=== PATIENT | female | born 1970 | race Caucasian/White ===

== ENCOUNTER 2023-08-04 13:35 | Emergency (ER) | payer OTHER, SELFPAY ==
[2023-08-04] VITALS (7 sets, daily range): BP systolic 111–136; BP diastolic 63–86
--- NOTE | 2023-08-04 14:32 | ED.GENMED ---
History of Present Illness
General
Chief Complaint: Fatigue
Source: patient
Time Seen by Provider: 08/04/23 14:22
Travel History
Have you had any contact with someone who has COVID-19?: No
Do you have any symptoms of coronavirus? Fever > 100 degrees, chills, cough, shortness of breath, sore throat, loss of taste or smell, muscle aches, or headache?: No
History of Present Illness
History of Present Illness:
53-year-old female presents with generalized fatigue. She was discharged from [facility] about 10 days ago. 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 She was treated with antibiotics was discharged on a couple more days of
antibiotics but lost them and route back here. She has been living in her car. She has occasional chest discomfort. She notes sweats and chills. No measurable fever. No other complaints at this time
Past History
Past History
ED Past Medical History: Asthma, HTN, Psychiatric (Depression, Panic attacks) and Other (back pain, frequent headaches, .Lymes disease, Chronic joint pain)
ED Past Surgical History: (tubal ligation) and Other (Hernia)
Social History
Tobacco: Smoker
Alcohol: None
Drug: Marijuana and Narcotics (Percocet abuse)
Personal: Single
Living: with family
Employment: Employed
Family History
Family History: Unable to obtain
Phy Exam
Physical Exam
Physical Exam:
General: Well-appearing female no acute respiratory distress
HEENT: Normocephalic atraumatic
Heart: Regular rate and rhythm no audible murmurs
Lungs: Clear no wheeze or rales
Abdomen: Soft nontender numbness
Extremities: No cyanosis
Skin: Warm no rash
Course
Orders/Labs/Results
Orders:
Orders
08/04/23 13:55
Case Management Consult ONCE
Case Management Consult: Discharge Planning
Requested By:: PT/FAMILY
Comment: PT. currently living in her car. She requested to meet with you.
08/04/23 14:18
Electrocardiogram (*1) Urgent
Reason for Study: Chest Pain
08/04/23 14:19
EKG- Treatment ONCE
08/04/23 15:19
CMP [Comprehensive Metabolic Panel] Urgent
Complete Blood Count/With Diff Urgent
Troponin I Urgent
Abnormal Lab Results
08/04/23
15:19
Hgb 11.4 L g/dL
(12.0-16.0)
Hct 35.9 L %
(37.0-47.0)
MCV 76.5 L fL
(81.0-99.0)
MCH 24.3 L pg
(27.0-31.0)
MCHC 31.8 L g/dL
(33.0-37.0)
RDW 16.6 H %
(11.5-14.5)
Total Protein 6.0 L g/dl
(6.3-8.2)
Albumin 3.4 L g/dl
(3.5-5.0)
08/04/23 15:19
08/04/23 15:19
Vital Signs
Initial and Last Documented VS:
Initial Vital Signs
Temp Pulse Resp BP Pulse Ox
98.2 F 94 18 136/86 100
08/04/23 13:40 08/04/23 13:40 08/04/23 13:40 08/04/23 13:40 08/04/23 13:40
Last Documented Vital Signs
Temp Pulse Resp BP Pulse Ox
98.2 F 77 27 111/72 100
08/04/23 13:40 08/04/23 18:15 08/04/23 18:15 08/04/23 18:00 08/04/23 18:15
MDM/Problems Addressed
Differential Diagnosis Includes:
Generalized fatigue. Recent diagnosis of endocarditis. Patient was at a hospital in [place] for this. Will check labs. EKG pending. Troponin pending. Vital signs are stable. Patient is with family member. Patient admits to living out of
her car. She did request manager social work. Case management consult placed
*Critical Care Note
Total Time (30-74mins, 75-104mins- exclusive of procedures): Not Applicable
Update Note
Update Note:
Patient reevaluated still stable. White count normal troponin undetectable. Discussed with case management. Case management attempting to find her hotel to stay in. Patient did lose her remaining 4 days of Bactrim after prior discharge. I will
refill this prescription for her to take. No neck condition at this time.
ED Attending Note
-
Portions of this chart may have been created with voice recognition software.� Occasional wrong word or��sound alike� substitutions may have occurred due to the inherent limitations of voice recognition software.
Discharge Plan
Departure
Patient Disposition: Home (Routine Discharge)
Date of Disposition: 08/04/23
Time of Disposition: 18:01
Patient with high blood pressure during this ER visit?: No
Discharge Problem:
Fatigue
Instructions: Fatigue (DC)
Prescriptions:
New
sulfamethoxazole-trimethoprim [Bactrim DS] 800-160 mg tablet
1 tab PO BID Qty: 14 0RF
Referrals:
NONE,* [Family Provider] -
Activity Restrictions/Additional Instructions:
Please return here for worsening symptoms otherwise follow-up with family doctor.
Interventions
Interventions:
*Risk Screen - Suicide Last Done: 08/04/23 13:40
*General Assessment Last Done: 08/04/23 13:40
*Neglect/Abuse Screening Last Done: 08/04/23 13:40
ED- Fall Risk Assessment Last Done: 08/04/23 13:53
*ED COVID-19 Vaccine History Last Done: 08/04/23 13:40
*Nursing Disposition Last Done: 08/04/23 18:35
Discharge Date and Time
Discharge Date/Time: 08/04/23 18:36
Print Language: CITIZEN OF [place]
[2023-08-04 15:38] LABS: % Basophils 0.7 % (0-2); % Eosinophils 2.8 % (0-6); % Immature Granulocytes 0.3 % (0-0.5); % Lymphocytes 24.8 % (20.5-51.1); % Monocytes 6.5 % (1.7-9.3); % Neutrophils 64.9 % (42.2-75.2); Absolute Eosinophils 0.2 10^3/uL (0-0.7); Absolute Lymphocytes 1.5 10^3/uL (1.2-3.4); Absolute Monocytes 0.4 10^3/uL (0.1-0.6); Absolute Neutrophils 3.9 10^3/uL (1.4-6.5); Hematocrit 35.9 % (37.0-47.0); Hemoglobin 11.4 g/dL (12.0-16.0); Mean Corp Hgb Conc. 31.8 g/dL (33.0-37.0); Mean Corpuscular Hgb 24.3 pg (27.0-31.0); Mean Corpuscular Volume 76.5 fL (81.0-99.0); Mean Platelet Volume 10.3 fL (7.4-10.4); Nucleated Red Blood Cells % 0 %; Platelet Count 329 10^3/uL (130-400); Red Blood Cell Count 4.69 10^6/uL (4.20-5.40); Red Cell Dist. Width 16.6 % (11.5-14.5)
--- NOTE | 2023-08-04 15:45 | CM ---
Addendum entered by Coreen Swan RN 08/04/23 16:29:
EDUARDO left message for MARIE to request housing assistance. CM will await call back.
Original Note:
CM met with patient in room. Patient stated that she have been homeless for several months. She drove up to [facility] as her family is here. She stated that they cannot provide housing assistance at this time. Patient has her 15 year old with her
who she stated is going to stay with his friend's family while he is in [facility].
CM provided patient with written homeless resources. She is requesting assistance with a hotel room. EDUARDO will call MARIE for a hotel room if the patient is being discharged.
[2023-08-04 16:00] LABS: Troponin I < 0.012 ng/ml
[2023-08-04 16:02] LABS: ALT (SGPT) 13 U/L (0-35); AST (SGOT) 16 U/L (14-36); Albumin 3.4 g/dl (3.5-5.0); Alkaline Phosphatase 69 U/L (38-126); Blood Urea Nitrogen 11 mg/dl (7-17); Calcium 9.3 mg/dl (8.4-10.2); Carbon Dioxide 27 mmol/L (22-30); Chloride 106 mmol/L (98-107); Glucose 85 mg/dl (70-99); Potassium 4.1 mmol/L (3.5-5.1); Sodium 137 mmol/L (135-145); Total Bilirubin 0.3 mg/dl (0.2-1.3); eGFR > 60.00
--- NOTE | 2023-08-04 18:36 | CM ---
[facility] was unable to assist with hotel room. Patient has spoken with MARIE and they offered multiple resources. Patient has not been able to follow up with resources. Patient stated that she has a friend that she can stay with. CM offered a ride
assistance
Tonio Sepulveda
VITALIY Martin
== END 2023-08-04 18:36 | disposition home or self-care (01) ==
LOC: EMR 13:35
PROVIDERS: Physician Assistant Medical; EMERGENCY PHYSICIAN Emergency Medicine
DX: R53.83 Other fatigue (principal); J45.909 Unspecified asthma, uncomplicated; I10 Essential (primary) hypertension; F32.A Depression, unspecified; F41.0 Panic disorder [episodic paroxysmal anxiety]; F17.200 Nicotine dependence, unspecified, uncomplicated
CPT/HCPCS: 99283; 80053; 84484; 85025; 93005

== ENCOUNTER 2023-08-09 23:40 | Emergency (ER) | payer OTHER, SELFPAY ==
[2023-08-09 23:41] VITALS: BMI 37.7
[2023-08-09 23:45] VITALS: BP 157/93
[2023-08-10] VITALS: BP 140/92
[2023-08-10] MEDS: NSS 1000 IV
[2023-08-10] MEDS: TORADOL 15 MG IV (00:03)
[2023-08-10] MEDS: ZOFRAN 4 MG IV (00:03)
[2023-08-10 00:06] LABS: % Basophils 0.8 % (0-2); % Immature Granulocytes 0.3 % (0-0.5); % Lymphocytes 27.2 % (20.5-51.1); % Neutrophils 64.7 % (42.2-75.2); Absolute Basophils 0.1 10^3/uL (0-0.2); Absolute Eosinophils 0.1 10^3/uL (0-0.7); Absolute Lymphocytes 1.7 10^3/uL (1.2-3.4); Absolute Monocytes 0.4 10^3/uL (0.1-0.6); Hematocrit 37.1 % (37.0-47.0); Hemoglobin 11.9 g/dL (12.0-16.0); Mean Corp Hgb Conc. 32.1 g/dL (33.0-37.0); Mean Corpuscular Hgb 24.5 pg (27.0-31.0); Mean Corpuscular Volume 76.3 fL (81.0-99.0); Mean Platelet Volume 9.7 fL (7.4-10.4); Nucleated Red Blood Cells % 0 %; Platelet Count 276 10^3/uL (130-400); Red Blood Cell Count 4.86 10^6/uL (4.20-5.40); Red Cell Dist. Width 16.3 % (11.5-14.5); White Blood Cell Count 6.2 10^3/uL (4.8-10.8)
--- NOTE | 2023-08-10 00:11 | ED.GENMED ---
History of Present Illness
General
Chief Complaint: Abdominal Symptoms
Time Seen by Provider: 08/09/23 23:51
Travel History
Have you had any contact with someone who has COVID-19?: No
Do you have any symptoms of coronavirus? Fever > 100 degrees, chills, cough, shortness of breath, sore throat, loss of taste or smell, muscle aches, or headache?: No
History of Present Illness
History of Present Illness:
53-year-old female with history of hypertension and endocarditis presents to the emergency department complaining of nausea, diarrhea, abdominal pain. He was in this emergency department 5 days ago with complaints of fatigue. She was apparently
admitted to a hospital in [facility] for a prolonged period of time due to endocarditis due to IV drug abuse. She was discharged approximately 2 weeks ago misplaced her last 3 to 4 days of antibiotics. I do not have any immediate records
available at this time regarding that hospitalization. She admits that she is currently homeless. Denies any recent opiate use whether oral or IV. States she has been 'clean for several months'. Denies any chest pain or shortness of breath
currently. No ill contacts.
Past History
Past History
ED Past Medical History: Asthma, HTN, Psychiatric (Depression, Panic attacks) and Other (back pain, frequent headaches, .Lymes disease, Chronic joint pain)
ED Past Surgical History: (tubal ligation) and Other (Hernia)
Social History
Tobacco: Smoker
Alcohol: None
Drug: Marijuana and Narcotics (Percocet abuse)
Personal: Single
Living: with family
Employment: Employed
Family History
Family History: Unable to obtain
Review of Systems
Review of Systems
Allergies reviewed?: Yes
All Other Systems: ROS reviewed and negative except as documented in HPI and ROS
Phy Exam
Physical Exam
Physical Exam:
GEN: Well appearing, NAD, WDWN
Eyes: PERRLA, EOMs intact, no scleral icterus
HENT: NCAT, oral mucosa moist
Lungs: CTAB, no wheezes, rales, rhonchi, normal chest wall excursion
Cardiac: RRR, mild systolic murmur, no peripheral edema. Radial pulses 2+ bilat
Abdomen: Soft, mild generalized tenderness, no focal tenderness, no rigidity
Neuro: AO x 3, no focal deficits to BUE/BLE, normal sensation throughout
MSK: No gross deformity or ecchymosis.
Skin: No rashes, petechiae. Normal color, no pallor or jaundice.
Psych: Disheveled, poor hygiene
Course
Orders/Labs/Results
Orders:
Orders
08/09/23 23:55
0.9% Sodium Chloride 1000 ml [Nss] 1,000 ml IV BOLUS
Ketorolac [Toradol] 15 mg IV NOW STA
Ondansetron Injectable [Zofran] 4 mg IV NOW STA
08/09/23 23:57
Complete Blood Count/With Diff Urgent
Comprehensive Metabolic Panel Urgent
Lipase Urgent
Abnormal Lab Results
08/09/23
23:57
Hgb 11.9 L g/dL
(12.0-16.0)
MCV 76.3 L fL
(81.0-99.0)
MCH 24.5 L pg
(27.0-31.0)
MCHC 32.1 L g/dL
(33.0-37.0)
RDW 16.3 H %
(11.5-14.5)
Chloride 108 H mmol/L
(98-107)
08/09/23 23:57
08/09/23 23:57
Vital Signs
Initial and Last Documented VS:
Initial Vital Signs
Temp Pulse Resp BP Pulse Ox
97.7 F 75 16 157/93 98
08/09/23 23:45 08/09/23 23:45 08/09/23 23:45 08/09/23 23:45 08/09/23 23:45
Last Documented Vital Signs
Temp Pulse Resp BP Pulse Ox
97.7 F 75 16 139/85 96
08/09/23 23:45 08/09/23 23:45 08/09/23 23:45 08/10/23 01:00 08/10/23 01:15
MDM/Problems Addressed
MDM/Problems Addressed:
Patient's labs are reassuring, she has a non concerning abdominal exam, do not feel there is any indication for CT imaging. Treated with supportive care in the emergency department with improvement. She is homeless and requested oncology social worker
however at this time there is no case management available to the hospital. She was offered a shower and food which she gladly accepted. Discharged from the emergency department in stable condition
*Critical Care Note
Total Time (30-74mins, 75-104mins- exclusive of procedures): Not Applicable
ED Attending Note
-
Portions of this chart may have been created with voice recognition software.� Occasional wrong word or��sound alike� substitutions may have occurred due to the inherent limitations of voice recognition software.
Discharge Plan
Departure
Patient Disposition: Home (Routine Discharge)
Date of Disposition: 08/10/23
Time of Disposition: 01:35
Patient with high blood pressure during this ER visit?: No
Discharge Problem:
Homelessness, Abdominal pain, Diarrhea
Instructions: Abdominal Pain
Prescriptions:
No Action
sulfamethoxazole-trimethoprim [Bactrim DS] 800-160 mg tablet
1 tab PO BID Qty: 14 0RF
Referrals:
NONE,* [Family Provider] -
Interventions
Interventions:
*Risk Screen - Suicide Last Done: 08/09/23 23:41
*General Assessment Last Done: 08/09/23 23:41
*Neglect/Abuse Screening Last Done: 08/09/23 23:41
ED- Fall Risk Assessment Last Done: 04/30/24 23:41
*ED COVID-19 Vaccine History Last Done: 08/09/23 23:41
XS-Qvuytc-Yvjsgtstyl Assessment Last Done: 08/09/23 23:41
Discharge Date and Time
Print Language: MAC[place]
[2023-08-10 00:20] LABS: ALT (SGPT) 13 U/L (0-35); AST (SGOT) 17 U/L (14-36); Albumin 3.5 g/dl (3.5-5.0); Alkaline Phosphatase 68 U/L (38-126); Blood Urea Nitrogen 7 mg/dl (7-17); Calcium 9.3 mg/dl (8.4-10.2); Carbon Dioxide 23 mmol/L (22-30); Chloride 108 mmol/L (98-107); Estimated Creatinine Clearance > 125 ml/min; Glucose 93 mg/dl (70-99); Lipase 41 U/L (23-300); Potassium 3.7 mmol/L (3.5-5.1); Sodium 137 mmol/L (135-145); Total Bilirubin 0.5 mg/dl (0.2-1.3); Total Protein 6.3 g/dl (6.3-8.2); eGFR > 60.00
[2023-08-10 01:00] VITALS: BP 139/85
[2023-08-10 05:23] VITALS: BP 130/80
--- NOTE | 2023-08-10 05:25 | EDRN ---
Pt. discharged, was provided meal and shower for self and her son. Pt. requesting to speak to heat treating bluer as 'it's still too dark for me to be up and walking and I can't walk back to where we came from right now'. Pt. was provided multiple alf
resources from crisis, heat treating bluer to bedside, offered for pt. to wait in waiting room until light outside and pt. feels safe. Pt. provided additional clothing per her request.
--- NOTE | 2023-08-10 10:48 | CM ---
Received CM consult for patient and her son who were waiting in ED waiting room. Reviewed the chart notes. Patient was seen in 08/04/23 in the ED and CM contacted MARIE who provided the patient with resources for homelessness. CM printed and
provided to the patient the [facility] Link information, as well as, the [facility] information packet. Patient requested a ride to [facility]. Ismael ride provided.
== END 2023-08-10 05:38 | disposition home or self-care (01) ==
LOC: EMR 23:40
PROVIDERS: Physician Assistant; EMERGENCY PHYSICIAN Student in an Organized Health Care Education/Training Program
DX: R11.0 Nausea (principal); R19.7 Diarrhea, unspecified; R10.9 Unspecified abdominal pain; I10 Essential (primary) hypertension; I38 Endocarditis, valve unspecified
CPT/HCPCS: 99283; 96374; 96375; 96360; 80053; 83690; 85025

== ENCOUNTER 2023-08-29 12:43 | Emergency (ER) | payer OTHER, SELFPAY ==
[2023-08-29 12:47] VITALS: BP 119/98; BMI 35.6
[2023-08-29 13:00] VITALS: BP 110/86
[2023-08-29 13:17] LABS: % Basophils 0.5 % (0-2); % Eosinophils 1.4 % (0-6); % Immature Granulocytes 0.4 % (0-0.5); % Lymphocytes 29.7 % (20.5-51.1); % Monocytes 5.7 % (1.7-9.3); % Neutrophils 62.3 % (42.2-75.2); Absolute Eosinophils 0.1 10^3/uL (0-0.7); Absolute Lymphocytes 1.7 10^3/uL (1.2-3.4); Absolute Monocytes 0.3 10^3/uL (0.1-0.6); Absolute Neutrophils 3.5 10^3/uL (1.4-6.5); Hematocrit 40.9 % (37.0-47.0); Mean Corp Hgb Conc. 31.8 g/dL (33.0-37.0); Mean Corpuscular Hgb 24.5 pg (27.0-31.0); Mean Corpuscular Volume 77.2 fL (81.0-99.0); Mean Platelet Volume 10.7 fL (7.4-10.4); Nucleated Red Blood Cells % 0 %; Platelet Count 330 10^3/uL (130-400); White Blood Cell Count 5.6 10^3/uL (4.8-10.8)
[2023-08-29 13:29] LABS: Blood Urea Nitrogen 7 mg/dl (7-17); Calcium 9.7 mg/dl (8.4-10.2); Carbon Dioxide 23 mmol/L (22-30); Estimated Creatinine Clearance > 125 ml/min; Glucose 108 mg/dl (70-99); eGFR > 60.00
--- NOTE | 2023-08-29 13:31 | ED.GENMED ---
History of Present Illness
General
Chief Complaint: Chest Pain
Source: patient and ambulance crew
Exam Limitations: none
Time Seen by Provider: 08/29/23 13:29
Nursing documentation reviewed up to this point in time: agreed with
Travel History
Have you had any contact with someone who has COVID-19?: No
Do you have any symptoms of coronavirus? Fever > 100 degrees, chills, cough, shortness of breath, sore throat, loss of taste or smell, muscle aches, or headache?: No
History of Present Illness
History of Present Illness:
53-year-old female presents emergency department complaining of chest pain in the center of her chest since 6 AM. She has gotten this in the past. She also is suicidal, she states she does not want to live homeless any longer. She has been
homeless in the past, and has been camping in the [facility] for the past 2 months.
Past History
Past History
ED Past Medical History: Asthma, HTN, Psychiatric (Depression, Panic attacks) and Other (back pain, frequent headaches, .Lymes disease, Chronic joint pain, endocarditis)
ED Past Surgical History: (tubal ligation) and Other (Hernia)
Social History
Tobacco: Smoker
Alcohol: None
Drug: Marijuana and Narcotics (Percocet abuse)
Personal: Single
Living: with family
Employment: Employed
Family History
Family History: Unable to obtain
Review of Systems
Review of Systems
Allergies reviewed?: Yes
All Other Systems: Not applicable
Constitutional: Reports no symptoms
EENT: Reports no symptoms
Respiratory: Reports no symptoms
Cardiac: Reports chest pain
ABD/GI: Reports no symptoms
: Reports no symptoms
Musculoskeletal: Reports no symptoms
Skin: Reports no symptoms
Neurological: Reports no symptoms
Endocrine: Reports no symptoms
Hematologic/Lymphatic: Reports no symptoms
Psychiatric: Reports suicidal
Phy Exam
Physical Exam
Physical Exam:
Physical Exam
General: no apparent distress, not acutely ill
Neck: supple. no meningeal signs. normal posterior pharynx
Heart: s1/s2 regular rate and rhythm, no murmur. equal radial
pulses. Chest wall tender to palpation, reproducing pain
HEENT: Pupils equal round reactive to light, EOMI
Lungs: no acute respiratory distress. clear bilaterally
Abdomen: normal bowel sounds. not tender. no CVAT
Neuro: alert and oriented. no focal neurological deficits cranial nerves II through XII intact
Skin: no rash
Psychiatric: well kept. interactive and cooperative
Extremities: no edema. no calf tenderness. negative homans. good distal pulses
Scores
Heart Score for Chest Pain Patients
STEMI patient?: No
History: Slightly or Non-Suspicious
ECG: Normal
Age: >45 - <65 years
Risk Factors: 1 or 2 Risk Factors
Troponin: </= Normal Limit
Heart Score for Chest Pain Patients: 2
Heart Score Risk: 2.5% MACE over next 6 weeks
Course
Orders/Labs/Results
Orders:
Orders
08/29/23 12:44
Electrocardiogram (*1) Urgent
Reason for Study: Chest Pain
EKG- Treatment ONCE
08/29/23 12:59
Basic Metabolic Panel Urgent
Complete Blood Count/With Diff Urgent
Lyme Progressive Urgent
Comment: ADDED
Troponin I Urgent
08/29/23 13:04
Crisis Consult Urgent
Reason for Consult: suicidal ideation, homeless, IV drug abuser
1:1 Observation - Suicide/ Violent Behavior As Directed
08/29/23 13:07
Add On- LAB Urgent
Comments:: in lab
Tests Added?: lyme progressive
08/29/23 13:56
CT Head W/o Iv Contrast Urgent
Comment:
Reason For Exam: headache
Acetaminophen [Tylenol] 650 mg PO NOW STA
08/29/23 15:45
COVID-19 Antigen Urgent
Source: Nasal Swab
08/29/23 15:52
Ketorolac [Toradol] 15 mg IV NOW STA
08/29/23 15:54
Fentanyl, Urine Urgent
Urinalysis Reflex To Culture Urgent
Date Specimen was Collected: 08/29/23
Time Specimen was Collected: 15:44
Urine Drug Abuse Screen Urgent
Date Specimen was Collected: 08/29/23
Time Specimen was Collected: 15:44
Urine Microscopic Reflex Cult Urgent
Abnormal Lab Results
08/29/23 08/29/23
12:59 15:54
MCV 77.2 L fL
(81.0-99.0)
MCH 24.5 L pg
(27.0-31.0)
MCHC 31.8 L g/dL
(33.0-37.0)
RDW 17.0 H %
(11.5-14.5)
MPV 10.7 H fL
(7.4-10.4)
Potassium 3.4 L mmol/L
(3.5-5.1)
Chloride 109 H mmol/L
(98-107)
Glucose 108 H mg/dl
(70-99)
Urine Ketones 1+ A
(Negative)
Ur Occult Blood Reflex Trace A
(Negative)
Urine Bilirubin 1+ A
(Negative)
Leukocyte Esterase Rfl Trace A
(Negative)
Urine Bacteria (Reflex) Few A
(Negative)
Urine Fentanyl Screen Positive H
(Negative)
Ur Amphetamines Screen Positive H
(Negative)
U Marijuana (THC) Screen Positive H
(Negative)
08/29/23 12:59
08/29/23 12:59
Vital Signs
Initial and Last Documented VS:
Initial Vital Signs
Pulse Resp BP Pulse Ox
90 20 119/98 97
08/29/23 12:47 08/29/23 12:47 08/29/23 12:47 08/29/23 12:47
Last Documented Vital Signs
Pulse Resp BP Pulse Ox
94 18 130/81 97
08/29/23 19:30 08/29/23 19:30 08/29/23 17:00 08/29/23 19:30
MDM/Problems Addressed
Differential Diagnosis Includes:
ACS, PE, intracranial mass, suicidal ideation
MDM/Problems Addressed:
53-year-old female with chest wall pain, suicidal nation, migraines. Stable for discharge to psychiatric facility.
Chronic conditions affecting care: Psychiatric illness and Other (Migraine)
Acute Exacerbation and/or Progression of Chronic Illness: Psychiatric illness and Other (Migraine)
*Radiology
Radiology exam reviewed: radiology read reviewed (ct head nad)
*Pulse Oximetry
Patient hypoxic: no
*EKG
Interpreted by ED Provider?: Yes
EKG Intrepretation Date: 08/29/23
EKG Intrepretation Time: 12:49
Interpretation: abnormal
Comparison EKG: no changes
Heart Rate: 97
Rate: normal
Rhythm: sinus
[employer]: normal axis
Interval: normal interval
QRS Pattern: normal QRS
Ischemia: no ischemia
*[employer] Interpretation
Rate: normal
Interpretation: normal
Heart Rate: 95
Rhythm: sinus
*Critical Care Note
Total Time (30-74mins, 75-104mins- exclusive of procedures): Not Applicable
Patient Management
Social determinants of health affecting care: Living situation and Substance abuse
Escalation/DeEscalation of care consider admission/obs:
Transfer indicated
ED Attending Note
-
Portions of this chart may have been created with voice recognition software.� Occasional wrong word or��sound alike� substitutions may have occurred due to the inherent limitations of voice recognition software.
Discharge Plan
Departure
Patient Disposition: Psych Facility
Date of Disposition: 08/29/23
Time of Disposition: 15:47
Patient with high blood pressure during this ER visit?: Yes
Condition: Good
Discharge Problem:
Suicide ideation, Anterior chest wall pain
Prescriptions:
No Action
sulfamethoxazole-trimethoprim [Bactrim DS] 800-160 mg tablet
1 tab PO BID Qty: 14 0RF
Referrals:
NONE,* [Family Provider] -
Interventions
Interventions:
*Risk Screen - Suicide Last Done: 08/29/23 12:47
*General Assessment Last Done: 08/29/23 12:47
*Neglect/Abuse Screening Last Done: 08/29/23 12:47
ED- Fall Risk Assessment Last Done: 08/29/23 12:47
*ED COVID-19 Vaccine History Last Done: 08/29/23 12:47
*Nursing Disposition Last Done: 08/29/23 21:08
ED- Cardiac Assessment Last Done: 08/29/23 12:47
Discharge Date and Time
Discharge Date/Time: 08/29/23 21:10
Print Language: FRENCH
[2023-08-29 13:41] LABS: Troponin I < 0.012 ng/ml
[2023-08-29 13:52] LABS: Chloride 109 mmol/L (98-107); Potassium 3.4 mmol/L (3.5-5.1); Sodium 141 mmol/L (135-145)
[2023-08-29 14:00] VITALS: BP 125/100
[2023-08-29] MEDS: TYLENOL 650 MG PO (14:38)
[2023-08-29 15:00] VITALS: BP 138/96
[2023-08-29 16:00] VITALS: BP 131/93
[2023-08-29 16:03] LABS: COVID-19 Antigen Negative (Negative)
[2023-08-29 16:04] LABS: Urine Albumin Negative (Neg - Trace); Urine Bilirubin 1+ (Negative); Urine Character Slightly Cloudy (Clear); Urine Color Yellow; Urine Glucose Negative (Negative); Urine Ketone 1+ (Negative); Urine Leukocyte Trace (Negative); Urine Nitrite Negative (Negative); Urine Occult Blood Trace (Negative); Urine Urobilinogen 1+ (Neg - 1+)
[2023-08-29 16:17] LABS: Marijuana Positive (Negative); Tricyclic Antidepressants Negative (Negative)
[2023-08-29 16:18] LABS: Amphetamines Positive (Negative); Barbiturates Negative (Negative); Benzodiazepines Negative (Negative); Buprenorphine Negative (Negative); Cocaine Negative (Negative); Methadone Negative (Negative); Methamphetamines Negative (Negative); Opiates Negative (Negative); Phencyclidine Negative (Negative)
[2023-08-29 16:22] LABS: Urine Bacteria Few (Negative); Urine Mucus Moderate; Urine Red Blood Cell 0-2 /HPF (0-2); Urine Squamous Cell 16-20 /LPF (Few); Urine White Cell 0-2 /HPF (0-5)
[2023-08-29 16:33] LABS: Fentanyl, Urine Positive (Negative)
[2023-08-29] MEDS: TORADOL 15 MG IV (16:55)
[2023-08-29 17:00] VITALS: BP 130/81
[2023-09-02 15:08] LABS: Lyme Antibody Screen, EIA Negative (Negative)
== END 2023-08-29 21:10 ==
LOC: EMR 12:43
PROVIDERS: EMERGENCY PHYSICIAN Emergency Medicine
DX: R45.851 Suicidal ideations (principal); R07.89 Other chest pain; Z11.52 Encounter for screening for COVID-19; Z59.00 Homelessness unspecified; G43.909 Migraine, unspecified, not intractable, without status migrainosus; F12.10 Cannabis abuse, uncomplicated; J45.909 Unspecified asthma, uncomplicated; I10 Essential (primary) hypertension; F41.0 Panic disorder [episodic paroxysmal anxiety]; F32.A Depression, unspecified; F17.200 Nicotine dependence, unspecified, uncomplicated
CPT/HCPCS: 99285; 96374; 70450; 80048; 80306; 80307; 81003; 81015; 84484; 85025; 86618; 87811; 93005